=== PATIENT | male | born 1965 | race Caucasian/White ===

== ENCOUNTER 2021-11-23 19:12 | Emergency (ER) | payer SELFPAY ==
[~2021-11-23] VITALS: Ht 177.8 cm; Wt 82.0 kg
[2021-11-23] MEDS ORDERED: DEXT 10% WATER 1,000 ML IV SCH (20:15)
[2021-11-23 21:56] LABS: HEMOGLOBIN. 11.4 g/dL (14.0-18.0); MEAN CORPUSCULAR HEMOGLOBIN 27.3 pg (28.0-32.0); MEAN CORPUSCULAR VOLUME 84.1 fL (80.0-94.0); MEAN PLATELET VOLUME 6.8 fl (7.4-10.4); PLATELET 286 x1000/uL (130-400); RED BLOOD CELL COUNT 4.16 mill/uL (4.7-6.1); RED CELL DISTRIBUTION WIDTH 20.4 % (11.6-14.6)
[2021-11-23 22:06] LABS: CHLORIDE 98 mEq/L (98-107)
[2021-11-23 22:11] LABS: ETHANOL BLOOD < 10 mg/dL
[2021-11-23 23:19] LABS: PLATELET ESTIMATE NORMAL
[2021-11-24 00:05] LABS: CLARITY URINE CLEAR (CLEAR); COLOR URINE YELLOW (YELLOW); KETONES URINE TRACE (NEGATIVE); LEUKOCYTE ESTERASE URINE NEGATIVE (NEGATIVE); NITRITE URINE NEGATIVE (NEGATIVE); OCCULT BLOOD URINE 2+ (NEGATIVE); PROTEIN URINE NEGATIVE (NEGATIVE); SPECIFIC GRAVITY URINE 1.007 (1.005-1.030); UROBILINOGEN URINE 0.2 E.U./dL (0.2-1.0)
[2021-11-24 00:21] LABS: *AMPHETAMINES SCREEN URINE PRESUMTIVE POSITIVE (NEGATIVE); *BARBITURATES SCREEN URINE NEGATIVE (NEGATIVE); *BENZODIAZEPINES SCREEN URINE PRESUMTIVE POSITIVE (NEGATIVE)
[2021-11-24 00:22] LABS: *COCAINE SCREEN URINE NEGATIVE (NEGATIVE); CANNABINOID URINE SCREEN NEGATIVE (NEGATIVE); METHADONE URINE SCREEN NEGATIVE (NEGATIVE); OPIATES URINE SCREEN NEGATIVE (NEGATIVE)
[2021-11-24 00:23] LABS: PHENCYCLIDINE URINE SCREEN NEGATIVE (NEGATIVE)
[2021-11-24] MEDS ORDERED: ACETAMINOPHEN 325MG TABLET PO ONE (02:45)
[2021-11-24] MEDS ORDERED: HYDRALAZINE HCL 50MG TABLET PO ONE (11:45)
[2021-11-24 12:25] VITALS: BP 181/96
== END 2021-11-24 12:25 | disposition home or self-care (01) ==
LOC: ER 19:12
DX: T51.0X1A Toxic effect of ethanol, accidental (unintentional), initial encounter (principal); G92.8 Other toxic encephalopathy; F15.10 Other stimulant abuse, uncomplicated; F11.10 Opioid abuse, uncomplicated; Z20.822 Contact with and (suspected) exposure to COVID-19; Z59.00 Homelessness unspecified; Y92.89 Other specified places as the place of occurrence of the external cause
CPT/HCPCS: 36415; 71045; 80053; 80305; 80320; 81003; 82140; 82962; 84443; 85025; 87426; 96365; 99285; G0480